=== PATIENT | female | born 1990 | race Caucasian/White ===

== ENCOUNTER 2023-04-18 22:35 | Emergency (ER) | payer OTHER ==
[2023-04-18 23:07] LABS: BASOPHILS 0.9 % (0-2); HEMATOCRIT 41.3 % (35.0-50.0); HEMOGLOBIN 13.4 g/dL (12.0-18.0); LYMPHOCYTES 26.1 % (24-44); MCHC 32.5 g/dl (30-36); MONOCYTES 7.5 % (0-12); NEUTROPHILS 63.5 % (39-80); PLATELET COUNT 238 K/uL (140-440); RBC 4.81 M/ul (4.3-5.7); RDW 14.2 (10.5-15.0)
[2023-04-18 23:21] LABS: ALBUMIN 3.8 g/dL (3.4-5.0); ALBUMIN/GLOBULIN RATIO 1.12 (1.1-2.4); BILIRUBIN, TOTAL 0.4 ng/dL (0.2-1.0); BUN/CREATININE RATIO 11.76 (6.0-28.6); CALCIUM 8.7 mg/dL (8.5-10.1); CREATININE, SERUM 0.68 mg/dL (0.55-1.02); PROTEIN, TOTAL 7.2 g/dL (6.4-8.2)
[2023-04-19] MEDS ORDERED: CLEOCIN HCL300 MG PO (00:54)
[2023-04-19 01:05] VITALS: BP 124/78
== END 2023-04-19 01:05 | disposition home or self-care (01) ==
LOC: ED 22:35
PROVIDERS: Family Medicine
DX: K04.7 Periapical abscess without sinus (principal); Z88.0 Allergy status to penicillin
CPT/HCPCS: 36415; 70487; 80053; 84703; 85025; 99283-25; A9270; Q9967